=== PATIENT | female | born 1970 | race Caucasian/White ===

== ENCOUNTER → 2022-02-28 09:28 | Outpatient (CLI) | payer MEDICARE, MEDICAID, SELFPAY ==
[2022-02-28 16:54] LABS: Basophils # 0.1 K/mm3 (0-0.2); Basophils % 1.6 % (0.1-2.0); Eosinophils # 0.3 K/mm3 (0.0-0.4); Eosinophils % 5.7 % (0.1-12.0); Hematocrit 45.4 % (37.0-47.0); Hemoglobin 14.8 g/dL (12.2-16.2); Lymphocytes # 2.1 K/mm3 (0.7-4.5); Lymphocytes % 35.2 % (10-50); Mean Corpuscular HGB Conc 32.6 g/dL (31.8-35.4); Mean Corpuscular Hemoglobin 30.4 pg (27.0-31.2); Mean Corpuscular Volume 93.1 fl (81-99); Mean Platelet Volume 11.8 fl (7.4-10.4); Monocytes # 0.4 K/mm3 (0.1-1.0); Monocytes % 6.7 % (1.7-9.3); Neutrophils # 3.1 K/mm3 (1.8-7.8); Neutrophils % 50.8 % (37.0-80.0); Platelet Count 210 K/mm3 (142-424); Red Blood Count 4.88 M/mm3 (4.20-5.40); Red Cell Distribution Width 14.4 % (11.5-17.5); White Blood Count 6.1 K/mm3 (4.8-10.8)
[2022-02-28 16:59] LABS: Chloride 107 mmol/L (98-107)
[2022-02-28 17:00] LABS: Potassium 4.6 mmoL/L (3.5-5.1); Sodium 136 mmol/L (136-145)
[2022-02-28 17:02] LABS: Alanine Aminotransferase 106 U/L (12-78); Alkaline Phosphatase 173 U/L (38-126); Anion Gap 10.6 mEq/L (5-15); Aspartate Amino Transferase 107 U/L (14-36); Bilirubin,Total 0.6 mg/dl (0.2-1.3); Blood Urea Nitrogen 15 mg/dl (7-17); Carbon Dioxide 23 mmol/L (22.0-30.0); Estimated Glomerular Filt Rate 47 ml/min (>60); GFR (African American) 57 ML/MIN (>60)
[2022-02-28 17:03] LABS: Albumin Level 3.9 g/dl (3.5-5.0); Albumin/Globulin Ratio 1.6 (1.1-1.8); Calcium 9.4 mg/dl (8.4-10.2); Globulin 2.5 g/dL (1.3-3.2); Glucose 109 mg/dl (74-100); Total Protein,Serum 6.4 g/dl (6.3-8.2)
== END ==
PROVIDERS: PCP Family Medicine; Visit Provider Family Medicine
DX: R73.03 Prediabetes (principal)
CPT/HCPCS: 80053; 85025

== ENCOUNTER → 2022-04-02 06:58 | Outpatient (CLI) | payer MEDICARE, MEDICAID, SELFPAY ==
[2022-04-01 19:06] LABS: Alanine Aminotransferase 49 U/L (12-78); Albumin Level 3.9 g/dl (3.5-5.0); Alkaline Phosphatase 139 U/L (38-126); Aspartate Amino Transferase 60 U/L (14-36); Bilirubin,Indirect 0.2 mg/dL (0.0-0.9); Bilirubin,Total 0.2 mg/dl (0.2-1.3); Bilirubin,Unconjugated 0.4 mg/dL (0.0-1.1); Total Protein,Serum 6.5 g/dl (6.3-8.2)
== END ==
PROVIDERS: PCP Family Medicine; Visit Provider Family Medicine
DX: R74.8 Abnormal levels of other serum enzymes (principal)
CPT/HCPCS: 80076

== ENCOUNTER → 2022-04-18 14:50 | Outpatient (CLI) | payer MEDICARE, MEDICAID, SELFPAY ==
--- NOTE | 2022-04-18 14:54 | XR_ITS ---
FINAL REPORT CLINICAL HISTORY: pain without trauma FINDINGS: RIGHT HIP Two views of the right hip with an AP pelvis demonstrate no acute fracture or dislocation. The joint spaces appear normal. The visualized bony structures are well aligned. No soft tissue abnormality is seen. There are postoperative changes from fusion of L5-S1. IMPRESSION: Postoperative changes with no acute bony abnormality. Reviewed, Interpreted and Dictated by Frank Martinez III, MD Transcribed by Jessica Espinal Authenticated and . [facility]
== END ==
PROVIDERS: PCP Family Medicine; Visit Provider Family Medicine
DX: M25.551 Pain in right hip (principal)
CPT/HCPCS: 73502

== ENCOUNTER → 2022-05-22 14:32 | Outpatient (CLI) | payer MEDICARE, MEDICAID, SELFPAY ==
--- NOTE | 2022-05-22 14:36 | XR_ITS ---
FINAL REPORT CLINICAL HISTORY: rectal bleeding FINDINGS: Flat and upright views of the abdomen demonstrate a nonobstructive bowel gas pattern. There is a moderate amount of retained stool. Postoperative changes are seen in the right upper quadrant. There is no free air. There are no abnormal calcifications. There are postoperative changes in the lower lumbar spine. There is a fractured screw in the upper right pelvis. There is leftward curvature of the lumbar spine. IMPRESSION: Moderate retained stool. Reviewed, Interpreted and Dictated by Frank Martinez III, MD Transcribed by Jake Martino Authenticated and [facility]
[2022-05-22 16:03] LABS: Basophils # 0.1 K/mm3 (0-0.2); Basophils % 1.2 % (0.1-2.0); Eosinophils # 0.5 K/mm3 (0.0-0.4); Eosinophils % 5.5 % (0.1-12.0); Hematocrit 49.5 % (37.0-47.0); Hemoglobin 15.7 g/dL (12.2-16.2); Lymphocytes # 3.1 K/mm3 (0.7-4.5); Lymphocytes % 33.6 % (10-50); Mean Corpuscular HGB Conc 31.7 g/dL (31.8-35.4); Mean Corpuscular Hemoglobin 29.4 pg (27.0-31.2); Mean Corpuscular Volume 92.8 fl (81-99); Mean Platelet Volume 10.4 fl (7.4-10.4); Monocytes # 0.5 K/mm3 (0.1-1.0); Neutrophils % 54.6 % (37.0-80.0); Platelet Count 331 K/mm3 (142-424); Red Blood Count 5.33 M/mm3 (4.20-5.40); Red Cell Distribution Width 14.8 % (11.5-17.5); White Blood Count 9.1 K/mm3 (4.8-10.8)
[2022-05-22 16:16] LABS: Chloride 105 mmol/L (98-107); Potassium 4.9 mmoL/L (3.5-5.1); Sodium 139 mmol/L (136-145)
[2022-05-22 16:18] LABS: Albumin Level 4.7 g/dl (3.5-5.0)
[2022-05-22 16:19] LABS: Alanine Aminotransferase 33 U/L (12-78); Alkaline Phosphatase 150 U/L (38-126); Amylase 59 U/L (30-110); Anion Gap 12.9 mEq/L (5-15); Aspartate Amino Transferase 44 U/L (14-36); Bilirubin,Total 0.6 mg/dl (0.2-1.3); Calcium 10.5 mg/dl (8.4-10.2); Carbon Dioxide 26 mmol/L (22.0-30.0); Glucose 102 mg/dl (74-100); Lipase 59 U/L (23-300)
[2022-05-22 16:20] LABS: Albumin/Globulin Ratio 1.7 (1.1-1.8); Globulin 2.7 g/dL (1.3-3.2); Total Protein,Serum 7.4 g/dl (6.3-8.2)
[2022-05-22 18:19] LABS: Blood Urea Nitrogen 17 mg/dl (7-17); Estimated Glomerular Filt Rate 43 ml/min (>60); GFR (African American) 52 ML/MIN (>60)
[2022-05-22 18:32] LABS: Intact Parathyroid Hormone 56.4 pg/mL (7.5-53.5)
[2022-05-24 16:10] LABS: Calcium, Ionized 5.3 mg/dL (4.5-5.6)
== END ==
PROVIDERS: PCP Family Medicine; Visit Provider Physician Assistant
DX: K62.5 Hemorrhage of anus and rectum (principal); R10.13 Epigastric pain
CPT/HCPCS: 36415; 74019; 80053; 82150; 82330; 83690; 83970; 85025

== ENCOUNTER → 2022-05-23 12:41 | Outpatient (CLI) | payer MEDICARE, MEDICAID, SELFPAY ==
--- NOTE | 2022-05-23 12:44 | CT_ITS ---
FINAL REPORT TECHNIQUE: After the administration of oral and intravenous contrast, axial images were obtained through the abdomen and pelvis by computed tomography. The study was performed with techniques to keep radiation dose as low as reasonably achievable, (ALARA). Individual dose reduction techniques using automated exposure control or adjustment of mA and/or kV according to the patient's size were employed. CLINICAL HISTORY: rectal bleeding FINDINGS: Abdomen: There is a calcified granuloma in the right middle lobe. There is mild fatty infiltration of the liver. The patient is status post cholecystectomy. The spleen is unremarkable. The adrenals are normal. The pancreas is unremarkable. The right kidney is absent. The left kidney is unremarkable. The aorta is normal in caliber. There is no free fluid or adenopathy. Pelvis: The appendix is not identified. There is wall thickening of the descending and sigmoid colon with adjacent stranding consistent with colitis. A moderate amount of stool is seen throughout the colon. There are postoperative changes in the lower lumbar spine. The urinary bladder is unremarkable. There is no free fluid or adenopathy. IMPRESSION: Findings consistent with colitis. Reviewed, Interpreted and Dictated by Frank Martinez III, MD Transcribed by Georgina Wright Authenticated and [facility]
== END ==
PROVIDERS: PCP Family Medicine; Visit Provider Family Medicine
DX: K62.5 Hemorrhage of anus and rectum (principal); R10.9 Unspecified abdominal pain
CPT/HCPCS: 74177; Q9967

== ENCOUNTER → 2023-08-28 23:35 | Outpatient (CLI) | payer MEDICARE, MEDICAID, SELFPAY | PROVIDERS: PCP Family Medicine; Visit Provider Family Medicine | DX: L98.9 Disorder of the skin and subcutaneous tissue, unspecified (principal) ==

== ENCOUNTER 2023-10-23 09:10 | Outpatient (CLI) | payer MEDICARE, MEDICAID, SELFPAY ==
[2023-10-23 23:36] LABS: Amphetamine/Metha Screen,Urine Negative ng/ml (<1000); Barbiturates Screen,Urine Negative ng/ml (<200); Benzodiazepines Screen,Urine Negative ng/ml (<200); Cannabinoid Screen,Urine Negative ng/ml (<50); Cocaine Screen,Urine Negative ng/ml (<300); Methadone Screen,Urine Negative ng/ml (<300); Opiate Screen,Urine Negative ng/ml (<300); Phencyclidine Screen,Urine Negative ng/ml (<25)
== END 2023-10-23 23:59 ==
LOC: LAB.DROPOF 10-24 09:11
PROVIDERS: PCP Family Medicine; Visit Provider Family Medicine
DX: Z79.899 Other long term (current) drug therapy (principal)
CPT/HCPCS: 80307

== ENCOUNTER 2024-02-04 11:11 | Outpatient (CLI) | payer MEDICARE, MEDICAID, SELFPAY | END 2024-02-04 23:59 | disposition home or self-care (01) | LOC: LAB.DROPOF 02-05 11:12 | PROVIDERS: PCP Family Medicine; Visit Provider Family Medicine | DX: Z01.818 Encounter for other preprocedural examination (principal); N18.4 Chronic kidney disease, stage 4 (severe) ==

== ENCOUNTER 2024-02-05 18:30 | Outpatient (CLI) | payer MEDICARE, MEDICAID, SELFPAY ==
[2024-02-05 19:00] LABS: Chloride 108 mmol/L (98-107)
[2024-02-05 19:01] LABS: Potassium 4.7 mmoL/L (3.5-5.1); Sodium 138 mmol/L (136-145)
[2024-02-05 19:03] LABS: Alanine Aminotransferase 18 U/L (12-78); Alkaline Phosphatase 96 U/L (38-126); Aspartate Amino Transferase 30 U/L (14-36); Bilirubin,Total 0.6 mg/dl (0.2-1.3); Blood Urea Nitrogen 26 mg/dl (7-17); Estimated Glomerular Filt Rate 43 ml/min (>60); GFR (African American) 52 ML/MIN (>60)
[2024-02-05 19:04] LABS: Albumin Level 4.3 g/dl (3.5-5.0); Albumin/Globulin Ratio 1.7 (1.1-1.8); Anion Gap 8.7 mEq/L (5-15); Calcium 9.9 mg/dl (8.4-10.2); Carbon Dioxide 26 mmol/L (22.0-30.0); Globulin 2.6 g/dL (1.3-3.2); Glucose 81 mg/dl (74-100); Total Protein,Serum 6.9 g/dl (6.3-8.2)
== END 2024-02-05 23:59 | disposition home or self-care (01) ==
LOC: LAB.DROPOF 18:31
PROVIDERS: PCP Family Medicine; Visit Provider Family Medicine
DX: Z01.818 Encounter for other preprocedural examination (principal)
CPT/HCPCS: 80053

== ENCOUNTER 2024-04-07 10:41 | Outpatient (CLI) | payer MEDICARE, MEDICAID, SELFPAY ==
[2024-04-07 20:08] LABS: Alanine Aminotransferase 24 U/L (12-78); Albumin Level 4.2 g/dl (3.5-5.0); Albumin/Globulin Ratio 1.6 (1.1-1.8); Alkaline Phosphatase 100 U/L (38-126); Anion Gap 12.5 mEq/L (5-15); Aspartate Amino Transferase 36 U/L (14-36); Bilirubin,Total 0.9 mg/dl (0.2-1.3); Blood Urea Nitrogen 16 mg/dl (7-17); Calcium 9.6 mg/dl (8.4-10.2); Carbon Dioxide 26 mmol/L (22.0-30.0); Chloride 105 mmol/L (98-107); Estimated Glomerular Filt Rate 43 ml/min (>60); GFR (African American) 52 ML/MIN (>60); Globulin 2.7 g/dL (1.3-3.2); Glucose 96 mg/dl (74-100); Potassium 4.5 mmoL/L (3.5-5.1); Sodium 139 mmol/L (136-145); Total Protein,Serum 6.9 g/dl (6.3-8.2)
== END 2024-04-07 23:59 | disposition home or self-care (01) ==
LOC: LAB.DROPOF 04-08 10:41
PROVIDERS: PCP Family Medicine; Visit Provider Family Medicine
DX: R07.9 Chest pain, unspecified (principal)
CPT/HCPCS: 80053

== ENCOUNTER 2024-04-19 13:44 | Outpatient (CLI) | payer MEDICARE, MEDICAID, SELFPAY ==
--- NOTE | 2024-04-19 13:45 | CT_ITS ---
FINAL REPORT TECHNIQUE: Axial images were obtained from the lung apex to the mid abdomen by computed tomography. Coronal reformatted images were obtained. This study was performed with techniques to keep radiation doses as low as reasonably achievable, (ALARA). Individualized dose reduction techniques using automated exposure control or adjustment of mA and/or kV according to the patient''s size were employed. CLINICAL HISTORY: Chest Pain, smoker COMPARISON: None FINDINGS: There are several mildly enlarged mediastinal nodes. There is no pericardial or pleural effusion. There is a calcified granuloma in the right middle lobe. No pulmonary mass or suspicious nodule is identified. No localized pulmonary inflammatory process is noted. The chest wall is intact. Limited images of the upper abdomen demonstrate the patient is postcholecystectomy. IMPRESSION: Several mildly enlarged mediastinal nodes. Otherwise, unremarkable exam. Reviewed, Interpreted and Dictated by Frank Martinez III, MD Transcribed by Giovanna Bustillos Authenticated and [facility]
== END 2024-04-19 23:59 | disposition home or self-care (01) ==
LOC: RAD 13:45
PROVIDERS: PCP Family Medicine; Visit Provider Family Medicine
DX: R07.9 Chest pain, unspecified; F17.210 Nicotine dependence, cigarettes, uncomplicated
CPT/HCPCS: 71250

== ENCOUNTER 2025-06-19 17:24 | Emergency (ER) | payer MEDICARE, SELFPAY ==
[2025-06-19 18:11] VITALS: BP 102/69; PULSE 82; RESP 18; TEMP 36.2; O2SAT 98; BMI 30.4
--- OUTSIDE RECORDS SUMMARY | 2025-06-19 18:24 | XMS_ITS | Clinical Summary ---
Author Organization [facility] Address [address] [place] [address] Phone Care Team Providers Care Manager Non Profit Name Role Phone Andrew Aponte MD Primary Care Provider [phone] Allergies Active Allergy Reactions Criticality Noted Date Comments No Known Allergies 05/06/2011 Medications CYCLOBENZAPRINE HCL (CYCLOBENZAPRINE ORAL) Take 10 mg by mouth every 6 hours as needed. Active DIAZEPAM ORAL Take 5 mg by mouth daily as needed. Active hydrocodone-acet aminophen (VICODIN ES) 7.5-750 mg per tablet Take 1 Tab by mouth every 6 hours as needed for Pain. Active Surgical History Surgery Date Site/Laterality Comments BACK SURGERY APPENDECTOMY SECTION Medical History Medical History Date Comments Heartburn Arthritis Chronic kidney disease Depression anxiety Social History Tobacco Use Types Packs/Day Years Used Date Smoking Tobacco: Every Day Cigarettes 1 12 Alcohol Use Standard Drinks/Week Comments No 0 (1 standard drink = 0.6 oz pur e alcohol) Comments No Sex and Gender Information Value Date Recorded Sex Assigned at Not on file Legal Sex Female 12:15 AM EDT Gender Identity Not on file Sexual Orientation Not on file Obstetrics History Last Filed Vital Signs Vital Sign Reading Time Taken Comments Blood Pressure 103/69 05/18/2011 8:26 AM EDT Pulse 80 05/18/2011 8:26 AM EDT Temperature 36.4 C (97.6 F) 05/18/2011 8:26 AM EDT Respiratory Rate 18 05/18/2011 8:26 AM EDT Oxygen Saturation 97% 05/18/2011 8:26 AM EDT Inhaled Oxygen Concentration - - Weight 76.2 kg (168 lb) 05/15/2011 5:00 PM EDT Height 167.6 cm (5' 6 ) 05/15/2011 5:00 PM EDT Body Mass Index 27.12 05/15/2011 5:00 PM EDT Plan of Treatment Health Maintenance Due Date Last Done Comments Wellness Exam Medicare 1972 Hepatitis B Vaccine (1 of 3 - 19+ 3-dose series) 1988 Cervical Cancer Screening 1990 Pap Smear 1990 HPV/Pap Cotest 1999 Colonoscopy 2014 FIT 2014 Sigmoidoscopy 2014 Virtual Colonography 2014 Pneumococcal Vaccine 50+ (1 of 1 - PCV) 2019 Zoster (1 of 2) 2019 Breast Cancer Screening 12/31/2023 12/31/19 22, 10/25/2020 COVID-19 Vaccine (1 - 2023-2 5 season) 2024 Cologuard 04/07/2025 04/07/2022 Colon Cancer Screening 04/07/2025 Influenza Vaccine (#1) 2025 07/26/2020 DTaP/TDaP/Td (2 - Td or Tdap) 06/29/2025 06/29/2015 Meningococcal B Vaccine Aged Out No l onger eligible based on patient's age to complete this topic Procedures Procedure Name Priority Date/Time Associated Diagnosis Comments MM MAMMO DIGITAL MITALI SCREEN BILAT Routine 12/30/2021 2:10 PM EDT Encounter for screening mammogram for malignant neoplasm of breast from Last 3 Months or Most Recently Relevant to Health Maintenance Results * MM MAMMO DIGITAL MITALI SCREEN BILAT (12/30/2021 2:10 PM EDT) Anatomical Region Laterality Modality Breast Bilateral Mammography 12/31/2021 8:30 AM EDT Impressions 12/31/2021 8:30 AM EDT Negative ([id number]) ~ RECOMMENDATION: Routine screening mammogram in 1 year. ~ DISCLAIMER * Any patient with a palpable abnormality, unexplained by breast imaging, should be managed on clinical basis by the attending physician. * Breast imaging has a false negative rate of 15%. * The patient was notified by mail of the results of this examination. *The patient's information was entered into a reminder system with a target due date for the next mammogram, in accordance with the [employer] and the Society of Breast Imaging recommendations. Narrative 12/31/2021 8:30 AM EDT Procedure:MM MAMMO DIGITAL MITALI SCREEN BILAT ~ Reason for exam: screening, asymptomatic. Z12.31-Encounter for screening mammogram for malignant neoplasm of [id number] ~ MM MAMMO DIGITAL MITALI SCREEN BILAT Bilateral CC and MLO view(s) were taken. There are scattered fibroglandular densities. Prior study comparison: Compared with prior studies the most recent being 10/25/20, 03/16/13 No mammographic evidence of malignancy. ~ Procedure Note Lashell Joyner MD - 12/31/2021 Procedure:MM MAMMO DIGITAL MITALI SCREEN BILAT ~ Reason for exam: screening, asymptomatic. Z12.31-Encounter for screening mammogram for malignant neoplasm of [id number] ~ MM MAMMO DIGITAL MITALI SCREEN BILAT Bilateral CC and MLO view(s) were taken. There are scattered fibroglandular densities. Prior study comparison: Compared with prior studies the most recentbeing 10/25/20, 03/16/13 No mammographic evidence of malignancy. ~ IMPRESSION: Negative ([id number]) ~ RECOMMENDATION: Routine screening mammogram in 1 year. ~ DISCLAIMER * Any patient with a palpable abnormality, unexplained by breast imaging, should be managed on clinical basis by the attending physician. * Breast imaging has a false negative rate of 15%. * The patient was notified by mail of the results of this examination. *The patient's information was entered into a reminder system with atarget due date for the next mammogram, in accordance with the [employer] and the Society of Breast Imaging recommendations. Andrew Aponte MD IM MAMMOGRAPHY ORDERABLES Final Result from Last 3 Months or Most Recently Relevant to Health Maintenance Insurance [employer] [facility] [employer] PPO MR [id number] [id number] [facility] [employer] Care Teams Manager Non Profit Relationship Specialty Start Date End Date Andrew Aponte MD [facility] - General 04/24/11
--- OUTSIDE RECORDS SUMMARY | 2025-06-19 18:24 | XMS_ITS | Clinical Summary ---
Author Organization [facility] Address [address] [place] [address] Phone Care Team Providers Care Flexographic Press Plate Setter Name Role Phone Mckinley PINTO, [facility] [phone] Conditions or Problems Problem Name Problem Code Onset Date Status Entry Date Provider Comment Standard Description Annotate LUMBAR RADICULOPATHY [id number] (SNOMED CT) 03/09 Active 03/09 Irish [place] Lumbar radiculopathy Medications Medication Instructions Start Date Stop Date Generic Name NDC Provider VICODIN ES 7.5-750 MG TABS [facility] HYDROCODONE-ACETA MINOPHEN [id number] Fiona Wilda CYCLOBENZAPRINE HCL 10 MG TABS [facility] CYCLOBENZAPRINE HCL [id number] Fiona Wilda DIAZEPAM 5 MG TABS [facility] DIAZEPAM [id number] Fiona Wilda Medications Administered No information available. Allergies, Adverse Reactions, Alerts Observed no known allergies at Results No information available. Plan of Care Type Date Detail Pending order CT myelogram cer vical Pending order CT myelogram cer vical Pending Order exclud ed from report: Pending order CT myelogram lum bar Pending order CT myelogram lum bar Procedures No information available. Vital Signs Date Name Value Unit Description BP Diastolic 68 mm[Hg] blood pressu re, diastolic BP Systolic 104 mm[Hg] blood pressur e, systolic Height 66 [in_us] height E&M Weight Measured 160 [lb_av] weight E& M Weight Measured 160 [lb_av] weight E& M Immunizations No information available. Advance Directives No information available.
--- NOTE | 2025-06-19 19:49 | PC.NURSE ---
von swann to chair side
--- NOTE | 2025-06-19 19:54 | CT_ITS ---
PROCEDURE INFORMATION: Exam: CT Lumbar Spine Without Contrast Exam date and time: 06/19/2025 8:31 PM Age: 55 years old Clinical indication: Other: Involuntary ble jerking TECHNIQUE: Imaging protocol: Computed tomography of the lumbar spine without contrast. Radiation optimization: All CT scans at this facility use at least one of these dose optimization techniques: automated exposure control; mA and/or kV adjustment per patient size (includes targeted exams where dose is matched to clinical indication); or iterative reconstruction. COMPARISON: CT ABDOMEN PELVIS W CON 05/23/2022 2:54 PM FINDINGS: Bones/joints: Orthopedic hardware produces posterior fusion of the lumbosacral junction. No vertebral body compression or subluxation. Mild disc bulge and uncovertebral spurring at the L3-L4 disc level. Soft tissues: Unremarkable. IMPRESSION: No acute abnormality. Chronic findings as noted
--- NOTE | 2025-06-19 19:54 | XR_ITS ---
PROCEDURE INFORMATION: Exam: XR Left Foot Exam date and time: 06/19/2025 8:31 PM Age: 55 years old Clinical indication: Pain; Foot; Left; Additional info: Metatarsal pain TECHNIQUE: Imaging protocol: Radiologic exam of the left foot. Views: 3 or more views. COMPARISON: CR XR ANKLE LT MIN 3V 06/19/2025 8:31 PM FINDINGS: Bones/joints: Osseous alignment is normal. No acute fracture. No significant arthritic change. Soft tissues: Normal. IMPRESSION: Negative left foot
[2025-06-19 20:12] LABS: Hematocrit 41.3 % (37.0-47.0); Hemoglobin 13.1 g/dL (12.2-16.2); Immature Granulocytes % 0.2 %; Mean Corpuscular HGB Conc 31.7 g/dL (31.8-35.4); Mean Corpuscular Hemoglobin 31.0 pg (27.0-31.2); Mean Corpuscular Volume 97.9 fl (81-99); Nucleated Red Blood Cells % 0 %; Platelet Count 173 K/mm3 (142-424); Red Blood Count 4.22 M/mm3 (4.20-5.40); Red Cell Distribution Width-SD 50.8 fL; White Blood Count 4.8 K/mm3 (4.8-10.8)
--- NOTE | 2025-06-19 20:17 | XR_ITS ---
PROCEDURE INFORMATION: Exam: XR Left Ankle Exam date and time: 06/19/2025 8:31 PM Age: 55 years old Clinical indication: Pain; Swelling, leg or foot; Ankle; Left; Additional info: Atraumatic pain swell TECHNIQUE: Imaging protocol: Radiologic exam of the left ankle. Views: 3 or more views. COMPARISON: CR XR FOOT LT MIN 3V 06/19/2025 8:31 PM FINDINGS: Bones/joints: Osseous alignment is normal. No acute fracture. No significant arthritic change. Soft tissues: Normal. IMPRESSION: Negative left ankle
[2025-06-19 20:20] LABS: Albumin Level 4.6 g/dl (3.5-5.0); Chloride 105 mmol/L (98-107); Potassium 5.8 mmoL/L (3.5-5.1); Sodium 140 mmol/L (136-145)
[2025-06-19 20:23] LABS: Alanine Aminotransferase 89 U/L (12-78); Albumin/Globulin Ratio 1.4 (1.1-1.8); Alkaline Phosphatase 114 U/L (38-126); Anion Gap 10.8 mEq/L (5-15); Aspartate Amino Transferase 123 U/L (14-36); Bilirubin,Total 0.8 mg/dl (0.2-1.3); Blood Urea Nitrogen 14 mg/dl (7-17); Calcium 9.1 mg/dl (8.4-10.2); Carbon Dioxide 30 mmol/L (22.0-30.0); Creatinine Clearance Estimated 69 mL/min (50-200); Creatinine,Serum 1.30 mg/dl (0.52-1.04); Estimated Glomerular Filt Rate 42 ml/min (>60); GFR (African American) 51 ML/MIN (>60); Globulin 3.3 g/dL (1.3-3.2); Glucose 79 mg/dl (74-100); Magnesium 1.8 mg/dl (1.6-2.3); Total Protein,Serum 7.9 g/dl (6.3-8.2)
--- NOTE | 2025-06-19 20:24 | HMH.EDGENADL ---
Discharge Plan Disposition Patient Disposition: Home, Self-Care Prescriptions Prescriptions: No Action hydrocodone-acetaminophen 10-325 mg tablet 1 tab PO Q8H PRN (Reason: pain) Qty: 45 0RF gabapentin 300 mg capsule 400 mg PO TID tizanidine 4 mg capsule 4 mg PO BID PRN metoprolol succinate 25 mg tablet extended release 24 hr 37.5 mg PO DAILY Qty: 90 5RF escitalopram oxalate 20 mg tablet See Rx Instructions .ROUTE .COMPLEX Qty: 90 0RF Dose Instruction: TAKE 1 TABLET BY MOUTH DAILY Rx Instructions: TAKE 1 TABLET BY MOUTH DAILY famotidine [Pepcid] 40 mg tablet 40 mg PO BID Qty: 180 3RF Referrals Follow up/Referrals: Andrew Aponte MD [Primary Care Provider, Family Practice] - See instructions Nivia Oconnor DPM [Staff Physician, Podiatry] - See instructions Activity Restrictions/Add. Instructions Additional Instructions/Restrictions: At this time it was felt you are safe to be discharged home. If new or worsening symptoms please do not hesitate to return the emergency department. With regards to your potassium it was elevated today and needs to be rechecked this week by your family doctor. Please call and schedule an appoint with Dr. Oconnor as soon as you are able to see what is causing the pain in your foot. Someone will contact you to definitively rule out a blood clot in your leg within the next day or so. Clinical Impressions Clinical Impression: Acute foot pain, Muscle, jerky movements (uncontrolled) Print Language Print Language: Chinese Discharge ED Provider: Jermaine Musa General Adult HPI General Chief complaint: PAIN Stated complaint: Left pain,both legs shaking,toes hurt & perez Time Seen by Provider: 06/19/25 19:00 Mode of Arrival: Ambulatory Source of Information: Patient Description of Symptoms (Recalled from ER Triage Doc. by RN): Pt presents with c/o left foot pain and tremors x 4-5 days. Pt rates pain as a 6/10, and she took her prescribed hydrocodone prior to coming in. Pt states she has had numbness/tingling and burning to her toes. History of Present Illness HPI narrative: Patient is a 55-year-old female with past medical history of CKD, previous nephrectomy, chronic back pain status post surgical intervention on multimodal medical therapy including hydrocodone and gabapentin who presents emergency department for evaluation of lower extremity pain and swelling. Onset was acute, last 4 to 5 days. She has had a deep pain in her foot on the left over her distal forefoot. There is associated mild swelling in her ankle. There is a family history of blood clots. No discrete trauma. There is also some involuntary painless jerking movements of the bilateral lower extremities that been going on throughout this course. Due to this patient become concerned and presented for continued valuation Related Data Home Medications ?Medication ?Instructions ?Recorded ?Confirmed gabapentin 300 mg capsule 400 mg PO TID 02/04/24 02/13/25 tizanidine 4 mg capsule 4 mg PO BID PRN 04/07/24 02/13/25 Previous Rx's ?Medication ?Instructions ?Recorded hydrocodone 10 mg-acetaminophen 1 tab PO Q8H PRN pain #45 tabs 12/30/23 325 mg tablet metoprolol succinate 25 mg 37.5 mg (1.5 x 25 mg) PO DAILY #90 07/01/24 tablet,extended release 24 hr tabs escitalopram oxalate 20 mg tablet See Rx Instructions .Route 03/27/25 .COMPLEX #90 tabs famotidine 40 mg tablet (Pepcid) 40 mg PO BID #180 tabs 04/04/25 Allergies Allergy/AdvReac Type Severity Reaction Status Date / Time No Known Allergies Allergy Verified 02/13/25 13:11 [facility] Disclaimer: The information contained in this section may have been updated after the patient was seen, as this information can be updated by other users. Medical History History of renal cell cancer GERD (gastroesophageal reflux disease) Mood disorder Prediabetes Essential hypertension Family history of diabetes mellitus Anxiety Chronic back pain greater than 3 months duration Obesity Right ankle pain Surgical History History of nephrectomy, right History of lumbar surgery Family History Other Diabetes Social History (Updated 02/13/25 @ 13:12 by Ariella Cruz MA) Smoking Status: Current every day smoker tobacco type: cigarettes packs per day: 1 alcohol intake: never current occupational status: disabled Travel in the last 8 weeks?: None household members: children housing: house Have you lived/traveled outside US in past 30 days?: No Contact w/someone who lives/traveled outside US past 30 days?: No Exposure to someone with infectious disease in past 14 days?: No Do you have a fever (greater than 100.4 F or 38 C)?: No Have you tested positive for COVID-19?: No Exposed to someone with COVID-19 in past 14 days?: No Do you have a sore throat?: No Do you have a cough?: No Do you have any weakness?: No Do you have any diarrhea?: No Are you experiencing any unusual bleeding?: No Do you have any muscle aches/pain?: No Do you have any abdominal pain?: No Are you experiencing loss of taste or smell?: No Other Medical History Have you received the Pneumonia Vaccine: No ROS Obtained: Yes Systems reviewed as appropriate & no additional complaints except as documented Physical Exam General General appearance: alert and in no apparent distress Head Head exam: atraumatic and normocephalic Eye Eye exam: Present PERRL and EOMI ENT ENT exam: Present mucous membranes moist Neck Neck exam: Present normal inspection Chest Chest inspection: Present normal inspection and symmetric chest wall rise Respiratory Respiratory exam: Absent respiratory distress Cardiovascular Cardiovascular exam: Present regular rate and normal rhythm Abdominal Exam Abdominal exam: Present soft Extremities Exam Extremities exam: Present other (Mild swelling about the left ankle. Mild tenderness over the dorsal aspect of the left foot. Palpable dorsal pedal pulse. No asymmetric swelling of the calves or thighs bilaterally. 5 out of 5 strength bilateral lower extremities.) Back Exam Back exam: Present other (Lower lumbar spine tenderness) Neurological Exam Neurological exam: Present alert Psychiatric Psychiatric exam: Present normal affect Skin Skin exam: Present warm and dry Medical Decision Making Medical Records Screening: Per USPSTF and CDC recommendations, given the prevalence of disease in our region, it is our hospital?s policy to screen for HIV and viral Hepatitis for all patients aged 18 and over and those with ongoing risk factors. Simon Inquiry Pt receiving controlled substance: No Vital Signs: 06/19/25 18:11 Temperature 97.2 F L Temperature Source Temporal Artery Scan Pulse Rate [Right] 82 Respiratory Rate 18 Blood Pressure [Right Arm] 102/69 L Blood Pressure Mean [Right Arm] 80 Blood Pressure Source [Right Arm] Automatic Cuff Blood Pressure Position [Right Arm] Sitting 02 Sat by Pulse Oximetry 98 Oxygen Delivery Method Room Air Lab Data Lab Results 06/19/25 20:04: WBC 4.8, RBC 4.22, Hgb 13.1, Hct 41.3, MCV 97.9, MCH 31.0, MCHC 31.7 L, RDW 14.1, Plt Count 173, MPV 12.2 H, Neut % (Auto) 45.0, Lymph % (Auto) 42.2, Petroleum % (Auto) 8.3, Eos % (Auto) 3.7, Baso % (Auto) 0.6, Neut # (Auto) 2.2, Lymph # (Auto) 2.0, Petroleum # (Auto) 0.4, Eos # (Auto) 0.2, Baso # (Auto) 0.0, Sodium 140, Potassium 5.8 H, Chloride 105, Carbon Dioxide 30, Anion Gap 10.8, BUN 14, Creatinine 1.30 H, Estimated Creat Clear 69, Estimated GFR 42 L, Est GFR ( Amer) 51 L, Glucose 79, Calcium 9.1, Magnesium 1.8, Total Bilirubin 0.8, AST 123 H, ALT 89 H, Alkaline Phosphatase 114, Total Protein 7.9, Albumin 4.6, Globulin 3.3 H, Albumin/Globulin Ratio 1.4 06/19/25 20:04 06/19/25 20:04 Orders (Tests/Meds): ORDERS Category Date Time Status CT lumbar spine wo con Stat Cat Scan 06/19/25 19:54 Completed Ankle XR - Left minimum 3 Views [XR ankle LT min 3V] Exams 06/19/25 20:17 Completed Stat Foot XR left minimum 3 views [XR foot LT min 3V] Stat Exams 06/19/25 19:54 Completed CBC w/Auto Diff [Complete Blood Count Auto Diff] Stat Lab 06/19/25 20:04 Completed CMP [Comprehensive Metabolic Panel] Stat Lab 06/19/25 20:04 Completed MG [Magnesium] Stat Lab 06/19/25 20:04 Completed Medical Decision Narrative: In summary patient is a 35-year-old female past medical history described above who presents to the emergency department for evaluation of pain in the left lower extremity in the setting of chronic back pain status post surgical intervention on multimodal medical therapy, associated involuntary movements of bilateral lower extremities, family history of blood clots. Patient is hemodynamically stable nontoxic-appearing upon arrival, afebrile. Differential is broad and includes metabolic derangement, compressive neuropathy, fracture, musculoskeletal strain, among others. No asymmetric swelling of the calf or thighs makes DVT less likely. Palpable dorsal pedal pulse on the left no concern for arterial pathology. The bilateral twitching movements of the lower extremities could be indicative of compressive neuropathy of her lumbar spine given that she has tenderness CT imaging will be ordered. Hematologic labs will be conducted for screening of metabolic derangement. Initial workup reviewed by me hematologic labs are nonactionable no significant leukocytosis no transfusable anemia, mild hyperkalemia and transaminitis. CT lumbar spine informally visualized by me no acute 3 column fracture. Formal read shows no acute pathology. Ankle and foot x-rays negative. These findings were relayed to the patient and essentially all emergencies have been ruled out I feel that the likelihood of DVT is low but not impossible however the risks of anticoagulation outweigh the benefits and will be deferred at this time patient will get outpatient duplex and will follow-up with podiatry and will repeat potassium. Patient was given return precautions and discharged in stable condition. Critical Care Critical Care Time Critical Care Time: No
[2025-06-19 21:46] VITALS: BP 125/89; PULSE 65; RESP 20; TEMP 36.9; O2SAT 98
--- NOTE | 2025-06-20 09:32 | PC.NURSE ---
pt called asking for an outpt order for her potassium lab recheck. I advised per Dr Musa's d/c plan, that she needs to see PCP for a 1 week follow up and they will place the order for potassium draw. Pt stated well I was wanting to save a trip going to [place] . I advised that Dr Musa would like her to have a follow up to recheck her symptoms and concerns as well as go over results from dvt u/s she is having today. Pt stated her understanding and will call PCP's office to schedule.
== END 2025-06-19 21:47 | disposition home or self-care (01) ==
PROVIDERS: Emergency Provider Emergency Medicine; PCP Family Medicine
DX: M79.672 Pain in left foot (principal); E87.5 Hyperkalemia; G25.5 Other chorea; R22.42 Localized swelling, mass and lump, left lower limb; F17.210 Nicotine dependence, cigarettes, uncomplicated
CPT/HCPCS: 72131; 73610; 73630; 80053; 83735; 85025; 99283; 99284

== ENCOUNTER 2025-06-20 14:23 | Outpatient (CLI) | payer MEDICARE, SELFPAY ==
--- NOTE | 2025-06-20 14:25 | CA_ITS ---
FINAL REPORT TECHNIQUE: Ultrasound images of the deep venous system were obtained from the left groin to the calf veins. CLINICAL HISTORY: left foot pain. No trauma. Family history of blood clots (mother and father) per patient. FINDINGS: The deep venous system is normally compressible. Normal flow is identified. IMPRESSION: No evidence of left lower extremity DVT. Reviewed, Interpreted and Dictated by Pankaj Rainey MD Transcribed by Giovanna Bustillos Authenticated and [facility]
--- OUTSIDE RECORDS SUMMARY | 2025-06-20 14:25 | XMS_ITS | Clinical Summary ---
Author Organization [facility] Address [facility] [place] [address] Phone Care Team Providers Care Business Administration Program Chair Name Role Phone Andrew Aponte MD Primary Care Provider [phone] Allergies Active Allergy Reactions Criticality Noted Date [...] EDT Impressions 12/31/2021 8:30 AM EDT Negative (EXG-Oijyhite-9) ~ RECOMMENDATION: Routine screening mammogram in 1 [...] the next mammogram, in accordance with the [employer] and the Society of Breast Imaging recommendations. Narrative 12/31/2021 8:30 AM EDT Procedure:MM MAMMO DIGITAL MITALI SCREEN BILAT ~ Reason for exam: screening, asymptomatic. Z12.31-Encounter for screening mammogram for malignant neoplasm of utwlzt-JOK-11-CM ~ MM MAMMO DIGITAL MITALI SCREEN BILAT [...] for screening mammogram for malignant neoplasm of fmktpa-ZVM-96-CM ~ MM MAMMO DIGITAL MITALI SCREEN BILAT Bilateral CC and MLO view(s) were taken. There are scattered fibroglandular densities. Prior study comparison: Compared with prior studies the most recentbeing 10/25/20, 03/16/13 No mammographic evidence of malignancy. ~ IMPRESSION: Negative (YID-Fsqsdllk-7) ~ RECOMMENDATION: Routine screening mammogram in 1 [...] the next mammogram, in accordance with the [employer] and the Society of Breast Imaging recommendations. Adnrew Aponte MD IM MAMMOGRAPHY ORDERABLES Final Result from Last 3 Months or Most Recently Relevant to Health Maintenance Insurance [employer] [facility] [employer] PPO MR Care Teams Business Administration Program Chair Relationship Specialty Start Date End Date Andrew Aponte MD [facility] - General 04/24/11
--- OUTSIDE RECORDS SUMMARY | 2025-06-20 14:25 | XMS_ITS | Clinical Summary ---
Author Organization [facility] (Formerly [facility]) Address [address] [place] [address] Phone Care Team Providers Care Deputy Prosecuting Attorney Name Role Phone Mckinley PINTO, Ricardo [facility] [phone] Conditions or Problems Problem Name Problem Code Onset Date Status Entry Date Provider Comment Standard Description Annotate LUMBAR RADICULOPATHY [id number] (SNOMED CT) 03/09 Active 03/09 Irish Mckinley Lumbar radiculopathy Medications Medication Instructions Start Date Stop Date Generic Name NDC Provider VICODIN ES 7.5-750 MG TABS [facility] HYDROCODONE-ACETA MINOPHEN [id number] Fiona Wilda CYCLOBENZAPRINE HCL 10 MG TABS [facility] CYCLOBENZAPRINE HCL [id number] Fiona Wilda DIAZEPAM 5 MG TABS [facility] DIAZEPAM [id number] Fiona Wilda Medications Administered No information available. [...]
== END 2025-06-20 23:59 | disposition home or self-care (01) ==
LOC: RT 14:23
PROVIDERS: PCP Family Medicine; Visit Provider Emergency Medicine
DX: M79.662 Pain in left lower leg (principal); M79.673 Pain in unspecified foot; Z82.49 Family history of ischemic heart disease and other diseases of the circulatory system
CPT/HCPCS: 93971

== ENCOUNTER 2025-06-23 10:50 | Outpatient (CLI) | payer MEDICARE, SELFPAY ==
[2025-06-23 16:10] LABS: Chloride 107 mmol/L (98-107); Potassium 4.2 mmoL/L (3.5-5.1); Sodium 139 mmol/L (136-145)
[2025-06-23 16:13] LABS: Anion Gap 9.2 mEq/L (5-15); Blood Urea Nitrogen 16 mg/dl (7-17); Calcium 9.5 mg/dl (8.4-10.2); Carbon Dioxide 27 mmol/L (22.0-30.0); Creatinine,Serum 1.50 mg/dl (0.52-1.04); Estimated Glomerular Filt Rate 36 ml/min (>60); GFR (African American) 43 ML/MIN (>60); Glucose 96 mg/dl (74-100)
--- OUTSIDE RECORDS SUMMARY | 2025-06-26 09:44 | XMS_ITS | Clinical Summary ---
Author Organization [facility] Address [facility] [place] [address] Phone Care Team Providers Care Commercial Agent Name Role Phone Andrew Aponte MD Primary Care Provider [phone] Allergies Active Allergy Reactions Criticality Noted Date [...] Breast Cancer Screening 12/31/2023 12/31/19 22, 10/25/2020 Cologuard 04/07/2025 04/07/2022 Colon Cancer Screening 04/07/2025 COVID-19 Vaccine (1 - 2023-2 5 season) 2025 Influenza Vaccine (#1) 2025 07/26/2020 DTaP/TDaP/Td (2 [...] EDT Impressions 12/31/2021 8:30 AM EDT Negative (SIB-Czbafgwh-5) ~ RECOMMENDATION: Routine screening mammogram in 1 [...] the next mammogram, in accordance with the [employer] and the Society of Breast Imaging recommendations. Narrative 12/31/2021 8:30 AM EDT Procedure:MM MAMMO DIGITAL MITALI SCREEN BILAT ~ Reason for exam: screening, asymptomatic. Z12.31-Encounter for screening mammogram for malignant neoplasm of breoms-DXF-17-CM ~ MM MAMMO DIGITAL MITALI SCREEN BILAT [...] for screening mammogram for malignant neoplasm of iopyiz-UNQ-03-CM ~ MM MAMMO DIGITAL MITALI SCREEN BILAT Bilateral CC and MLO view(s) were taken. There are scattered fibroglandular densities. Prior study comparison: Compared with prior studies the most recentbeing 10/25/20, 03/16/13 No mammographic evidence of malignancy. ~ IMPRESSION: Negative (JYP-Dbislqss-0) ~ RECOMMENDATION: Routine screening mammogram in 1 [...] the next mammogram, in accordance with the [employer] and the Society of Breast Imaging recommendations. Andrew Aponte MD IM MAMMOGRAPHY ORDERABLES Final Result from Last 3 Months or Most Recently Relevant to Health Maintenance Insurance [employer] [facility] [employer] PPO MR Care Teams Commercial Agent Relationship Specialty Start Date End Date Andrew Aponte MD [facility] - General 04/24/11
== END 2025-06-23 23:59 ==
LOC: LAB.DROPOF 06-26 09:37
PROVIDERS: PCP Nurse Practitioner Family; Visit Provider Nurse Practitioner Family
DX: E87.6 Hypokalemia (principal)
CPT/HCPCS: 80048